=== PATIENT | female | born 1975 | race Hispanic/Latino ===

== ENCOUNTER 2019-10-18 15:21 | Outpatient (CLI) | payer BC ==
--- NOTE | 2019-10-18 17:04 | Mammography Report ---
DEXA BONE DENSITY SCAN INDICATION / CLINICAL INFORMATION: OSTEOPOROSIS SCREENING. 44 years Female COMPARISON: None available. LUMBAR SPINE, L1-L4: - Bone mineral density (BMD) = 1.252 g/cm2. - T-score = 1.9 - Z-score = 2.4 Change (%) since most recent prior (if available): None available. LEFT HIP, TOTAL : - Bone mineral density (BMD) = 1.067 g/cm2. - T-score = 1.0 - Z-score = 1.4 Change (%) since most recent prior (if available): None available. IMPRESSION: WHO Classification: Normal bone density. Fracture Risk: Not Increased. BMD Reporting Guidelines (ISCD, 2015) BMD Reporting in Postmenopausal Women and in Men Age 50 and Older * T-scores are preferred. * The WHO densitometric classification is applicable. BMD Reporting in Females Prior to Menopause and in Males Younger Than Age 50 * Z-scores, not T-scores, are preferred. This is particularly important in children. * A Z-score of -2.0 or lower is defined as below the expected range for age, and a Z-score above -2. 0 is within the expected range for age. * Osteoporosis cannot be diagnosed in men under age 50 on the basis of BMD alone. * The WHO diagnostic criteria may be applied to women in the menopausal transition. http://www.iscd.org/official-positions/0211-mjqj-rliavvzr-positions-adult/ Signer Name: Juliano Salgado MD Signed: 10/18/2019 4:59 PM Workstation Name: [id number]
== END 2019-10-18 15:22 | disposition home or self-care (01) ==
LOC: SPVWC 15:21
PROVIDERS: ATTEND Internal Medicine
DX: Z13.820 Encounter for screening for osteoporosis (principal); M81.0 Age-related osteoporosis without current pathological fracture
CPT/HCPCS: 77080